=== PATIENT | male | born 1980 | race African-American/Black ===

== ENCOUNTER 2016-12-18 12:44 | Emergency (ER) | payer BC ==
[~2016-12-18] VITALS: Ht 167.6 cm; Wt 81.0 kg
[2016-12-18 13:40] VITALS: BP 142/78
[2016-12-18] MEDS ORDERED: IBUPROFEN 800 MG TABLET PO ONE (14:00)
== END 2016-12-18 14:37 | disposition home or self-care (01) ==
LOC: EMS 12:49
DX: K04.7 Periapical abscess without sinus (principal); K02.9 Dental caries, unspecified; F17.210 Nicotine dependence, cigarettes, uncomplicated
CPT/HCPCS: 99283